=== PATIENT | male | born 1965 | race Caucasian/White ===

== ENCOUNTER 2016-12-06 12:28 | Emergency (ER) | payer OTHER ==
[2016-12-06] MEDS ORDERED: Triamcinolone Acetonide* 40 MG/ML 1 ML VIAL IM ONE (14:10)
[2016-12-06] MEDS ORDERED: predniSONE TAB* 20 MG PO ONE (14:11)
--- NOTE | 2016-12-06 14:13 | UC ---
Skin Complaint HPI - HPI Summary HPI Summary: 51 yo male was out walking dogs yesterday He got inside his left middle finger was itching later developed a rash (small blisters) most to the blisters broke when he itched it some crusting pruritis intense left dorsal hand edema noted this AM with some erthema - History of Current Complaint Chief Complaint: UCSkin Time Seen by Provider: 12/06/16 14:01 Stated Complaint: RED SWOLLEN HAND Hx Obtained From: Patient Onset/Duration: Gradual Onset, Lasting Hours Timing: Constant Onset Severity: Mild Current Severity: Moderate Pain Intensity: 1 Pain Scale Used: 0-10 Numeric Location: Discrete Character: Swelling, Pruritus, Redness, Painful Aggravating: Touch Associated Signs & Symptoms: Positive: Rash, Tenderness - Allergy/Home Medications Allergies/Adverse Reactions: Allergies Allergy/AdvReac Type Severity Reaction Status Date / Time Penicillins Allergy UNKNOWN - Verified 12/06/16 12:50 HAPPENED A CHILD Review of Systems Constitutional: Negative Skin: Rash Eyes: Negative ENT: Negative Respiratory: Negative Cardiovascular: Negative Gastrointestinal: Negative Genitourinary: Negative Motor: Negative Neurovascular: Negative Musculoskeletal: Negative Neurological: Negative Psychological: Negative All Other Systems Reviewed And Are Negative: Yes PMH/Surg Hx/FS Hx/Imm Hx Previously Healthy: Yes Other History Of: Negative For: HIV, Hepatitis B, Hepatitis C, Anticoagulant Therapy - Surgical History Surgical History: Yes Surgery Procedure, Year, and Place: Left bicep tendon repair, Tonsillectomy - Family History Known Family History: Positive: None Negative: Cardiac Disease, Hypertension, Blood Disorder - Social History Alcohol Use: Rare Substance Use Type: None Smoking Status (MU): Never Smoked Tobacco Type: Cigarettes Amount Used/How Often: 2 cigs per week Have You Smoked in the Last Year: No When Did the Patient Quit Smoking/Using Tobacco: 2013 - Immunization History Most Recent Tetanus Shot: unknown Physical Exam Triage Information Reviewed: Yes Appearance: Well-Appearing, No Pain Distress, Well-Nourished Vital Signs: Initial Vital Signs Temp 98.7 F 12/06/16 12:45 Pulse 89 12/06/16 12:45 Resp 18 12/06/16 12:45 BP 141/94 12/06/16 12:45 Pulse Ox 97 12/06/16 12:45 Vital Signs Reviewed: Yes Eyes: Positive: Conjunctiva Clear ENT: Positive: Hearing grossly normal. Negative: Nasal drainage, Tonsillar exudate, Muffled/hoarse voice Dental Exam: Normal Neck: Positive: Supple, Nontender, No Lymphadenopathy Respiratory: Positive: Chest non-tender, Lungs clear, Normal breath sounds Cardiovascular: Positive: RRR, No Murmur Musculoskeletal: Positive: ROM Intact, ROM Limited @ - left dorsal hand edema Skin Exam: Other - see image Course/Dx - Course Course Of Treatment: pt states he has taken keflex before - Diagnoses Provider Diagnoses: contact dermatitis vs insect bite. cellulitis Discharge - Discharge Plan Condition: Stable Disposition: HOME Prescriptions: Cephalexin CAP* [Keflex CAP*] 500 mg PO QID #28 cap Patient Education Materials: Contact Dermatitis (ED), Cellulitis (ED) Referrals: Kathryn Negron MD [Primary Care Provider] - 4 Days (if not improved) Additional Instructions: I am not sure if this is due to an insect bite or contact dermatitis I am concerned that there may be some infection due to itching it epsom salt soaks elevation recheck for new or worsening symptoms Images Hands: 1 - one intact vesicle/multiple scabs 2 - dorsal hand edema/erythema
[2016-12-06 15:18] VITALS: BP 138/88
== END 2016-12-06 15:00 | disposition home or self-care (01) ==
LOC: UCEAST 12:28
DX: L03.012 Cellulitis of left finger (principal); Z87.891 Personal history of nicotine dependence
CPT/HCPCS: 96372; 99212; G0463; J3301; J7512

== ENCOUNTER 2017-02-09 22:36 | Emergency (ER) | payer OTHER ==
[2017-02-09 22:57] VITALS: BP 174/100
[2017-02-10] MEDS ORDERED: Lidocaine PATCH 5%* 1 PATCH TRANSDERM ONE (02:40)
[2017-02-10] MEDS ORDERED: Orphenadrine Citrate IV* 30 MG/ML 2 ML VIAL IM ONE (02:50)
[2017-02-10] MEDS ORDERED: Ketorolac INJ* 60 MG/2 ML VIAL IM ONE (02:50)
[2017-02-10] MEDS ORDERED: Dexamethasone TAB* 4 MG PO ONE (02:51)
[2017-02-10] MEDS ORDERED: oxyCODONE/Acetamin 5/325 MG* TAB PO ONE (02:51)
--- NOTE | 2017-02-10 02:56 | ED ---
Neck Pain - HPI Summary HPI Summary: 51M presents with right side neck pain for a day. He has history of neck pain and has had this pain before but never this severe. pain is located to right side of neck and starts on lower head down to right shoulder. He states the pain is sharp in nature. He denies feeling any muscle spams. He denies any weakness into his arms. He states pain is worst when tries to move his neck. He denies any numbness or tingling into his arms. He denies nay fever. He denies any trauma. He has history of back pain that takes tramadol for on daily basis and then is prescribed percocet occasionally for break through pain. He does not have any percocet currently. - History of Current Complaint Chief Complaint: EDExtremityUpper Stated Complaint: RT SHOULDER PAIN Time Seen by Provider: 02/10/17 02:17 Pain Intensity: 8 - Allergies/Home Medications Allergies/Adverse Reactions: Allergies Allergy/AdvReac Type Severity Reaction Status Date / Time Penicillins Allergy UNKNOWN - Verified 02/09/17 22:57 HAPPENED A CHILD PMH/Surg Hx/FS Hx/Imm Hx Endocrine/Hematology History: Denies: Hx Anticoagulant Therapy, Hx Diabetes, Hx Thyroid Disease Cardiovascular History: Reports: Hx Hypertension - BORDERLINE, CONTROLLED Denies: Hx Congestive Heart Failure, Hx Deep Vein Thrombosis, Hx Myocardial Infarction, Hx Pacemaker/ICD Respiratory History: Reports: Hx Asthma - He denies a history of asthma, but uses nebulized levalbuterol. Denies: Hx Chronic Obstructive Pulmonary Disease (COPD), Hx Lung Cancer, Hx Pneumonia, Hx Pulmonary Embolism GI History: Denies: Hx Gall Bladder Disease, Hx Gastrointestinal Bleed, Hx Ulcer, Hx Urosepsis History: Denies: Hx Dialysis, Hx Kidney Stones, Hx Renal Disease Musculoskeletal History: Reports: Hx Arthritis, Hx Back Problems Sensory History: Denies: Hx Hearing Aid Neurological History: Denies: Hx Dementia, Hx Migraine, Hx Seizures, Hx Transient Ischemic Attacks (TIA) Psychiatric History: Denies: Hx Anxiety, Hx Depression, Hx Panic Disorder, Hx Schizophrenia, Hx Bipolar Disorder - Surgical History Surgery Procedure, Year, and Place: Left bicep tendon repair, Tonsillectomy Infectious Disease History: No Infectious Disease History: Denies: Hx Clostridium Difficile, Hx Hepatitis, Hx Human Immunodeficiency Virus (HIV), Hx of Known/Suspected MRSA, Hx Shingles, Hx Tuberculosis, Hx Known/ Suspected VRE, Hx Known/Suspected VRSA, History Other Infectious Disease, Traveled Outside the [place] in Last 30 Days - Family History Known Family History: Positive: None Negative: Cardiac Disease, Hypertension, Blood Disorder - Social History Alcohol Use: Rare Substance Use Type: Reports: None Smoking Status (MU): Never Smoked Tobacco Type: Cigarettes Amount Used/How Often: 2 cigs per week Have You Smoked in the Last Year: No Review of Systems Negative: Fever Negative: Chest Pain Negative: Shortness Of Breath Positive: Myalgia - right sided neck pain All Other Systems Reviewed And Are Negative: Yes Physical Exam Triage Information Reviewed: Yes Vital Signs On Initial Exam: Initial Vitals Temp Pulse Resp BP Pulse Ox 97.6 F 79 14 174/100 97 02/09/17 22:54 02/09/17 22:54 02/09/17 22:54 02/09/17 22:54 02/09/17 22:54 Vital Signs Reviewed: Yes Appearance: Positive: Well-Appearing Skin: Positive: Warm, Dry Head/Face: Positive: Normal Head/Face Inspection Eyes: Positive: Normal, EOMI, Conjunctiva Clear Respiratory/Lung Sounds: Positive: Clear to Auscultation, Breath Sounds Present Cardiovascular: Positive: Normal, RRR Musculoskeletal: Positive: Strength/ROM Intact - bilateral arms, Limited @ - neck, Other - no midline tenderness, tender over right side of neck from lower part of scalp to right shoulder, good pulses, Neurological: Positive: Reflexes Intact - biceps - [place] Coma Scale Coma Scale Total: 15 Diagnostics - Vital Signs Vital Signs Temp Pulse Resp BP Pulse Ox 02/09/17 22:54 97.6 F 79 14 174/100 97 - Laboratory Lab Statement: Any lab studies that have been ordered have been reviewed, and results considered in the medical decision making process. Neck Course/Dx - Course Course Of Treatment: 51M presents with right side neck pain for a day. He has history of neck pain and has had this pain before but never this severe. pain is located to right side of neck and starts on lower head down to right shoulder. He states the pain is sharp in nature. He denies feeling any muscle spams. He denies any weakness into his arms. He states pain is worst when tries to move his neck. He denies any numbness or tingling into his arms. He denies nay fever. He denies any trauma. He has history of back pain that takes tramadol for on daily basis and then is prescribed percocet occasionally for break through pain. He does not have any percocet currently. on exam no mildine tender. tender over trapezius muscle. good strength in arms and biceps reflex intact. due to no trauma or midline tenderness did not get imaging. discussed treatment options: decided will give percocet as usually takes for break through pain, has muscle relaxers at home, and lidocaine patches and steriod. patient understands and agrees with plan. - Diagnoses Differential Dx/HQI/PQRI: Positive: Arthritis, Sprain, Strain Provider Diagnoses: Neck pain Discharge - Discharge Plan Condition: Good Disposition: HOME Prescriptions: Methylprednisolone [Medrol Dosepak 4 MG*] 4 mg PO .SEE SUNG INSTRUCTION #1 packet oxyCODONE/Acetamin 5/325 MG* [Percocet 5/325 TAB*] 1 tab PO Q6H PRN #8 tab MDD 4 PRN Reason: Pain - Severe Patient Education Materials: Neck Pain (ED) Referrals: Kathryn Negron MD [Primary Care Provider] - Additional Instructions: Follow directions on package for Medrol pack Take muscle relaxers as prescribed Apply lidocaine patches to area for up to 12 hours in one 24 hour period Use ibuprofen or Tylenol for pain every 6 hours, use narcotic for break through pain, use caution as will make drowsy ice/heat area, move as much as possible Follow up with primary within 3 days Return to ED if develop any new or worsening symptoms
[2017-02-10] MEDS ORDERED: Lidocaine Patch REMOVE* 1 NOTE MISC PATCH OFF ONE (15:00)
== END 2017-02-10 03:21 | disposition home or self-care (01) ==
LOC: ED 22:36
DX: M54.2 Cervicalgia (principal)
CPT/HCPCS: 96372; 99282; A9270-GY; J1885; J2360; J8540

== ENCOUNTER 2017-09-27 15:47 | Emergency (ER) | payer OTHER ==
--- NOTE | 2017-09-27 18:01 | RAD ---
INDICATION: Left knee pain one day after injury. COMPARISON: None TECHNIQUE: 4 view radiograph of the left knee. FINDINGS: The visualized bones are well-corticated and properly aligned. The joint spaces are properly maintained. There is no radiographic evidence of joint effusion. There is no acute fracture, dislocation or other focal bony abnormality. IMPRESSION: Normal knee radiograph as described above. If the patient's symptoms persist, follow-up imaging is recommended.
[2017-09-27] MEDS ORDERED: Ketorolac INJ* 60 MG/2 ML VIAL IM ONE (19:27)
[2017-09-27 19:43] VITALS: BP 138/90
--- NOTE | 2017-09-27 20:02 | ED ---
Alfonso Oh Jennifer, scribed for Kera Reveles MD on 09/27/17 at 1928 . Lower Extremity - HPI Summary HPI Summary: The patient is a 52 year old male who presents with left knee pain since last night. The patient explains he was [place] when he stepped in a hole and felt his knee pop. He reports immediate pain and was unable to walk afterwards. He denies falling. The patient reports that the pain is worsened with walking or straightening out the foot. - History of Current Complaint Chief Complaint: EDExtremityLower Stated Complaint: LT KNEE INJURY Time Seen by Provider: 09/27/17 19:13 Hx Obtained From: Patient Mechanism Of Injury: Other - "pop" when he stepped in a hole Onset of Pain: Immediate Onset/Duration: Worse Since Severity Initially: Moderate Severity Currently: Moderate Pain Intensity: 5 Pain Scale Used: 0-10 Numeric Timing: Constant Location: Radiates To - left knee radiates to ankle when walking Character Of Pain: Unable To Describe Associated Signs And Symptoms: Positive: Knee Pain Aggravating Factor(s): Ambulation, Movement Alleviating Factor(s): Nothing Able to Bear Weight: Yes - Allergies/Home Medications Allergies/Adverse Reactions: Allergies Allergy/AdvReac Type Severity Reaction Status Date / Time Penicillins Allergy Rash Verified 09/27/17 15:52 PMH/Surg Hx/FS Hx/Imm Hx Endocrine/Hematology History: Reports: Hx Diabetes - type 2 Denies: Hx Anticoagulant Therapy, Hx Thyroid Disease Cardiovascular History: Reports: Hx Hypertension - BORDERLINE, CONTROLLED Denies: Hx Congestive Heart Failure, Hx Deep Vein Thrombosis, Hx Myocardial Infarction, Hx Pacemaker/ICD Respiratory History: Reports: Hx Asthma - He denies a history of asthma, but uses nebulized levalbuterol. Denies: Hx Chronic Obstructive Pulmonary Disease (COPD), Hx Lung Cancer, Hx Pneumonia, Hx Pulmonary Embolism GI History: Denies: Hx Gall Bladder Disease, Hx Gastrointestinal Bleed, Hx Ulcer, Hx Urosepsis History: Denies: Hx Dialysis, Hx Kidney Stones, Hx Renal Disease Musculoskeletal History: Reports: Hx Arthritis, Hx Back Problems Sensory History: Denies: Hx Hearing Aid Neurological History: Denies: Hx Dementia, Hx Migraine, Hx Seizures, Hx Transient Ischemic Attacks (TIA) Psychiatric History: Denies: Hx Anxiety, Hx Depression, Hx Panic Disorder, Hx Schizophrenia, Hx Bipolar Disorder - Surgical History Surgery Procedure, Year, and Place: Left bicep tendon repair, Tonsillectomy Infectious Disease History: No Infectious Disease History: Denies: Hx Clostridium Difficile, Hx Hepatitis, Hx Human Immunodeficiency Virus (HIV), Hx of Known/Suspected MRSA, Hx Shingles, Hx Tuberculosis, Hx Known/ Suspected VRE, Hx Known/Suspected VRSA, History Other Infectious Disease, Traveled Outside the [place] in Last 30 Days - Family History Known Family History: Negative: Cardiac Disease, Hypertension, Blood Disorder - Social History Alcohol Use: None Substance Use Type: Reports: None Smoking Status (MU): Former Smoker Type: Cigarettes Amount Used/How Often: 2 cigs per week Have You Smoked in the Last Year: No Review of Systems Negative: Fever Positive: Other - knee pain All Other Systems Reviewed And Are Negative: Yes Physical Exam - Summary Physical Exam Summary: GENERAL: ~Patient is a well developed and nourished M who is lying comfortable in the stretcher. ~Patient is not in any acute respiratory distress. HEAD AND FACE: Normocephalic EYES: PERRLA, EOMI x 2. EARS: Hearing grossly intact. MOUTH: Oropharynx within normal limits. NECK: Supple, trachea is midline, no adenopathy, no JVD, no carotid bruit. CHEST: Symmetric, no tenderness at palpation LUNGS: Clear to auscultation bilaterally. No wheezing or crackles. CVS: Regular rate and rhythm, S1 and S2 present, no murmurs or gallops appreciated. ABDOMEN: Soft, non-tender. Bowel sounds are normal. No abdominal abnormal pulsations. EXTREMITIES: Decreased ROM of left knee secondary to pain, tender to palpation throughout the knee area, no edema, no cyanosis or clubbing. Neurovasularly intact NEURO: Alert and oriented x 3. No acute neurological deficits. Speech is normal and follows commands. SKIN: Dry and warm Triage Information Reviewed: Yes Vital Signs On Initial Exam: Initial Vitals Temp Pulse Resp BP Pulse Ox 97.1 F 100 16 142/97 98 09/27/17 15:49 09/27/17 15:49 09/27/17 15:49 09/27/17 15:49 09/27/17 15:49 Vital Signs Reviewed: Yes Diagnostics - Vital Signs Vital Signs Temp Pulse Resp BP Pulse Ox 09/27/17 15:49 97.1 F 100 16 142/97 98 - Laboratory Lab Statement: Any lab studies that have been ordered have been reviewed, and results considered in the medical decision making process. - Radiology Knee XR Xray Interpretation: No Acute Changes - Normal knee radiograph as described above. If the patient's symptoms persist, follow-up imaging is recommended. Dr. Reveles has reviewed this report. Radiology Interpretation Completed By: Radiologist Lower Extremity Course/Dx - Course Course Of Treatment: The patient is a 52 year old male who presents with left knee pain since last night after he stepped in a hole and felt it pop. In the ED course the patient was given Toradol. Knee XR was normal. The patient was diagnosed with knee injury and instructed to follow up with orthopedics. His knee was immobilized and crutched provided. Return precautions given - Diagnoses Provider Diagnoses: Knee injury Discharge - Sign-Out/Discharge Documenting (check all that apply): Discharge/Admit/Transfer - Discharge Plan Condition: Stable Disposition: HOME Prescriptions: Ibuprofen TAB* [Motrin TAB* 800 MG] 800 mg PO ONCE #20 tab Patient Education Materials: Knee Sprain (ED), Crutch Instructions (ED) Referrals: Derrick Worthy MD [Medical Doctor] - Additional Instructions: Follow up with Dr. Worthy, orthopedics, in three days. Return to the emergency department for any new or worsening symptoms. - Billing Disposition and Condition Condition: STABLE Disposition: HOME The documentation as recorded by the Alfonso laura Jennifer accurately reflects the service I personally performed and the decisions made by , Kera Reveles MD.
== END 2017-09-27 19:56 | disposition home or self-care (01) ==
LOC: ED 15:47
DX: S89.92XA Unspecified injury of left lower leg, initial encounter (principal); M25.562 Pain in left knee; X50.0XXA Overexertion from strenuous movement or load, initial encounter; Y93.9 Activity, unspecified; Y92.89 Other specified places as the place of occurrence of the external cause; Z87.891 Personal history of nicotine dependence
CPT/HCPCS: 96372; 99282; J1885

== ENCOUNTER 2018-10-18 09:44 | Emergency (ER) | payer OTHER ==
[2018-10-18 10:08] VITALS: BP 144/85
--- NOTE | 2018-10-18 10:08 | UC ---
Respiratory Complaint HPI - HPI Summary HPI Summary: 53 y/o male presents to the urgent care c/o nasal congestion, yellowish nasal discharge, dry cough, sinus pressure for the past week. Symptoms started w/ a common cold. He has taken Alkazelter plus w/o any improvement. About 3 days ago he developed sore throat and he noticed B/L eye redness. however, this morning, he woke up w/ yellowish crusting eye discharge and his eye were shut. Pt also c/ o of left side lower back pain radiating to his left hip for the past week. He states Hx of DDD and Spondylolysis at level L5-S1 for many years. 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 He has seen Spinal doctor in the past and did PT for a while which improved his lower back pain. Pt states pain is 7/10 today. He took Ibuprofen PO to alleviate symptoms. Pt states he has taken muscle relaxants which doesn't improve his back pain. He declines Lumbar X-ray today. Pt denies saddle anesthesia, fecal or urinary incontinence, numbness or tingling on b/L lower extremities, urinary symptoms, abdominal pain, N/v/d, fever, Hx of STd's - History of Current Complaint Chief Complaint: UCRespiratory Stated Complaint: RESP COMPLAINT Time Seen by Provider: 10/18/18 09:59 Hx Obtained From: Patient Onset/Duration: Gradual Onset, Lasting Weeks - 1 week, Still Present, Worse Since - 3 days w sore throat and B/l eye redness Timing: Constant Severity Initially: Mild Severity Currently: Moderate Pain Intensity: 7 - lower back pain Pain Scale Used: 0-10 Numeric Character: Cough: Nonproductive Aggravating Factors: Recumbent Position Alleviating Factors: OTC Meds Associated Signs And Symptoms: Positive: URI, Nasal Congestion, Sinus Discomfort. Negative: Fever, Chills, Wheezing, Dizziness Related History: Seasonal Allergies - Risk Factors Pulmonary Embolism Risk Factors: Negative Cardiac Risk Factors: Negative Pseudomonas Risk Factors: Negative Tuberculosis Risk Factors: Negative - Allergies/Home Medications Allergies/Adverse Reactions: Allergies Allergy/AdvReac Type Severity Reaction Status Date / Time No Known Allergies Allergy Verified 10/18/18 10:08 Home Medications: Home Medications Sitagliptin Phosphate [Januvia] 25 mg PO 10/18/18 [History] PMH/Surg Hx/FS Hx/Imm Hx Previously Healthy: Yes Endocrine History: Diabetes, Hypothyroidism Cardiovascular History: Hypertension Other History Of: Negative For: HIV, Hepatitis B, Hepatitis C, Anticoagulant Therapy - Surgical History Surgical History: Yes Surgery Procedure, Year, and Place: REPAIR BICEP TENDON LEFT - Family History Known Family History: Positive: Hypertension, Diabetes Negative: Cardiac Disease, Blood Disorder - Social History Occupation: Employed Full-time Lives: With Family Alcohol Use: None Substance Use Type: None Smoking Status (MU): Former Smoker Type: Cigarettes Amount Used/How Often: 2 cigs per week Have You Smoked in the Last Year: No When Did the Patient Quit Smoking/Using Tobacco: quit 5 yrs ago - Immunization History Most Recent Tetanus Shot: unknown Review of Systems All Other Systems Reviewed And Are Negative: Yes Constitutional: Positive: Negative Skin: Positive: Negative Eyes: Positive: Drainage - crust yellowish drainage, Eye Redness - b/L eye redness ENT: Positive: Sore Throat, Ear Ache - B/L ear pressure, Nasal Discharge, Sinus Congestion, Sinus Pain/Tenderness, Other - PND Respiratory: Positive: Cough - dry Cardiovascular: Positive: Negative Gastrointestinal: Positive: Negative Genitourinary: Positive: Negative Motor: Positive: Negative Neurovascular: Positive: Negative Musculoskeletal: Positive: Decreased ROM - lower back, Other: - left side lower back pain Neurological: Positive: Negative Psychological: Positive: Negative Is Patient Immunocompromised?: No Physical Exam - Summary Physical Exam Summary: VITAL SIGNS: Reviewed. GENERAL: Patient is a well developed and nourished obese male who is sitting comfortable in the examining table. Patient is not in any acute respiratory distress. HEAD AND FACE: No signs of trauma. No ecchymosis, hematomas or skull depressions. positiveB/L maxillary and sinus sinus tenderness. EYES: PERRLA, EOMI x 2, No injected conjunctiva, no nystagmus. No photophobia. EARS: Hearing grossly intact. Ear canals and tympanic membranes are within normal limits. MOUTH: Positive pharynx with erythema, no exaudate, palatal petechiae. B/L tonsillar enlargement with no exudate. Uvula in midline. Moderate yellowish PND NECK: Supple, trachea is midline, Positive anterior cervical lymphadenopathy, no JVD, no carotid bruit, no c-spine tenderness, neck with full ROM. No meningeal signs, no Kernig's or brudzinskis signs. CHEST: Symmetric, no tenderness at palpation LUNGS: Clear to auscultation bilaterally. No wheezing or crackles. CVS: Regular rate and rhythm, S1 and S2 present, no murmurs or gallops appreciated. ABDOMEN: Soft, non-tender. No signs of distention. No rebound no guarding, and no masses palpated. Bowel sounds are normal. EXTREMITIES: FROM in all major joints, no edema, no cyanosis or clubbing. Musculoskeletal: Positive: Strength Intact, BACK: Patient walked into the urgent care room with symmetric ambulation, No signs of limping, antalgic, able to bear weight. No signs of trauma, No masses palpated. Point tenderness at the level of L5-S1, No CVAT, no flank ecchymosis . No sacroiliac notch tenderness, No saddle anesthesia.ROM: limited due to pain, Straight Leg Raise: negative. Patellar reflexes: brisk, symmetric Muscle strength lower extremities. Dorsiflexion/ plantar flexion of ankles. Heel/ toe walk. Lower extremities: Femoral, popliteal, posterior tibial, and dorsalis pedis pulses WNL. Pt refuse rectal exam. NEURO: Alert and oriented x 3. No acute neurological deficits. Speech is normal and follows commands. SKIN: Dry and warm Triage Information Reviewed: Yes Respiratory Course/Dx - Course Course Of Treatment: 53 y/o male presents to the urgent care c/o nasal congestion, yellowish nasal discharge, dry cough, sinus pressure for the past week. Symptoms started w/ a common cold. He has taken Alkazelter plus w/o any improvement. About 3 days ago he developed sore throat and he noticed B/L eye redness. however, this morning, he woke up w/ yellowish crusting eye discharge and his eye were shut. Pt also c/ o of left side lower back pain radiating to his left hip for the past week. He states Hx of DDD and Spondylolysis at level L5-S1 for many years. 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 He has seen Spinal doctor in the past and did PT for a while which improved his lower back pain. Pt states pain is 7/10 today. He took Ibuprofen PO to alleviate symptoms. Pt states he has taken muscle relaxants which doesn't improve his back pain. He declines Lumbar X-ray today. Pt denies saddle anesthesia, fecal or urinary incontinence, numbness or tingling on b/L lower extremities, urinary symptoms, abdominal pain, N/v/d, fever, Hx of STd's. Hx obtained. Pt w/ acute bacterial sinusitis and B/L eye conjunctivitis on examination. Rapid strep: negative. Pt with 1 week of symptoms getting worse. Pt Rx Amoxicillin PO, Ciprofloxacin and flonase nasal spray. I-stop # [id number] : negative. Driver PO for a few days to alleviate his lower back pain, Strongly recommended to wear a back support and f/u w/ his Spinal Dr or call Les Zuluaga, Spinal Navigator for further management in his Chronic back pain. Pt's BP is elevated today advised to decrease salt in diet, monitor BP and f/u with PCP for further management. Discharge instructions explained to Pt. Advised to Return to the clinic or PCP if symptoms do not improve.Pt understood and agreed with plan of care. Pt left clinic ambulating, hemodynamically stable, A&OX3 - Differential Dx/Diagnosis Differential Diagnosis/HQI/PQRI: Bronchitis, Influenza, Sinusitis, Other - conjunctivits. chronic back pain, DDD, spondylolithesis Provider Diagnosis: Acute bacterial sinusitis, Acute conjunctivitis, bilateral, Chronic back pain Discharge - Sign-Out/Discharge Documenting (check all that apply): Patient Departure - d/C home All imaging exams completed and their final reports reviewed: No Studies - Discharge Plan Condition: Stable Disposition: HOME Prescriptions: Amoxicillin PO (*) [Amoxicillin 875 MG (*)] 875 mg PO BID #20 tab Ciprofloxacin 0.3% OPTH.XIN* [Cipro 0.3% Opth*] 1 drop BOTH EYES Q2H #1 btl Fluticasone NASAL SPRAY 50MCG* [Flonase NASAL SPRAY 50MCG*] 2 spray BOTH NARES DAILY #1 btl HYDROcodone/ACETAMIN 5-325 MG* [Driver 5-325 TAB*] 1 tab PO Q8H PRN #9 tab MDD 1g /4hr-4g/day PRN Reason: Pain Patient Education Materials: Sinusitis (ED), Degenerative Disc Disease (ED), Conjunctivitis (ED) Referrals: Kathryn Negron MD [Primary Care Provider] - 2 Days Kager,Annmarie Ae, RN [Registered Nurse] - 2 Days Skyler Rhoades MD [Medical Doctor] - If Needed Additional Instructions: 1- Please increase fluid intake and rest. take full course of antibiotic to avoid resistance 2-Use Flonase nasal spray as directed to help drain fluid. Also buy saline drops to clear sinuses 3-Apply Ciprofloxacin ophthalmic drops as directed to alleviate symptoms. Encourage hand washing to avoid spreading. 4-Please f/u w/ your PCP or director index Dr Rhoades if symptoms do not improve for further management and treatment 5- Please take Driver PO as directed to alleviate symptoms o alleviate your chronic back pain 6- Avoid strenuous exercise or heavy lifting. 7- Please call Spinal Nurse Navigator in 2-3 days: Melissa Zuluaga: [phone] for further management of your Degenerative disc disease and herniated discs. You probably need an MRI 8- Your BP is elevated today. please decrease salt in your diet, monitor BP and if it continues to be elevated please f/u with your PCP for further management. - Billing Disposition and Condition Condition: STABLE Disposition: Home
== END 2018-10-18 11:40 | disposition home or self-care (01) ==
LOC: UCEAST 09:44
DX: J01.80 Other acute sinusitis (principal); H10.33 Unspecified acute conjunctivitis, bilateral; G89.29 Other chronic pain; M54.9 Dorsalgia, unspecified; I10 Essential (primary) hypertension; E03.9 Hypothyroidism, unspecified; E11.9 Type 2 diabetes mellitus without complications; Z87.891 Personal history of nicotine dependence
CPT/HCPCS: 87651; 99212; G0463

== ENCOUNTER 2023-04-20 09:04 | Observation (INO) ==
[2023-04-20 10:47] LABS: ABS Basophils 0.1 10^3/uL (0.0-0.1); ABS Eosinophils 0.2 10^3/uL (0.0-0.5); ABS Lymphocytes 1.3 10^3/uL (1.0-4.8); ABS Monocytes 1.2 10^3/uL (0.0-1.1); ABS Neutrophils 8.6 10^3/uL (1.5-7.6); ABS Nucleated RBC 0.02 10^3/ul; Eosinophil % 1.7 %; Hematocrit 49.2 % (38-53); Hemoglobin 16.9 g/dL (13.2-16.3); Lymphocyte % 11.7 %; Mean Corpuscular Hemoglobin 31.1 pg (27-33); Mean Corpuscular Hgb Conc 34.3 g/dL (31-36); Mean Corpuscular Volume 90.5 fL (80-97); Mean Platelet Volume 9.5 fL (7.5-11.2); Nucleated Red Blood Cells % 0.1 %/100WBC (0.0-0.8); Platelet Count 151 10^3/uL (150-450); Red Blood Count 5.43 10^6/uL (4.06-5.63); Red Cell Distribution Width 14.1 % (12-17); White Blood Count 11.3 10^3/uL (3.6-10.2)
[2023-04-20 11:01] LABS: C Reactive Protein 13.24 mg/L (<8.01); Calcium 9.7 mg/dL (8.6-10.3); Creatinine, Serum 0.89 mg/dL (0.67-1.17); Potassium 4.5 mmol/L (3.5-5.0); eGFR CKD-EPI 99.3 (>60)
[2023-04-20 11:05] LABS: Albumin 4.4 g/dL (3.2-5.2); Albumin/Globulin Ratio 1.3 (1-3); Globulin 3.4 g/dL (2-4); Total Bilirubin 1.2 mg/dL (0.2-1.0); Total Protein 7.8 g/dL (6.4-8.9)
[2023-04-20 12:39] LABS: Uric Acid 5.8 mg/dL (4.4-7.6)
[2023-04-20 13:44] LABS: Erythrocyte Sed Rate 5 mm/Hr (0-19)
[2023-04-20] MEDS ORDERED: cefTRIAXone 2 GM ADDV.VIAL 2 GM in NS 0.9% 100 ml BAG 100 ML IV ONE (14:09)
[2023-04-20] MEDS ORDERED: Vancomycin 1,500 MG in NS 0.9% 250 ml 250 ML IVPB ONE (14:09)
[2023-04-20] MEDS ORDERED: cefTRIAXone 2 gm/50 mL D5W 2 GM/50 ML BAG IV ONE (15:00)
[2023-04-20] MEDS ORDERED: Enoxaparin 40 MG/0.4 ML SYR SUBCUT SCH (17:00)
[2023-04-20] MEDS ORDERED: Vancomycin per Pharmacy 1 EA NOTE FOLLOW UP SCH (18:00)
[2023-04-20] MEDS ORDERED: Morphine 2 MG/ML SYRINGE IV PRN (18:07)
[2023-04-20] MEDS: Vancomycin 1000 MG in NS 0.9% 250 ML IVPB SCH (23:43)
[2023-04-21 06:23] LABS: ABS Eosinophils 0.1 10^3/uL (0.0-0.5); ABS Lymphocytes 1.2 10^3/uL (1.0-4.8); ABS Monocytes 1.3 10^3/uL (0.0-1.1); ABS Neutrophils 7.8 10^3/uL (1.5-7.6); ABS Nucleated RBC 0.01 10^3/ul; Eosinophil % 1.2 %; Hemoglobin 14.9 g/dL (13.2-16.3); Lymphocyte % 11.8 %; Mean Corpuscular Hemoglobin 30.6 pg (27-33); Mean Corpuscular Hgb Conc 33.8 g/dL (31-36); Mean Corpuscular Volume 90.3 fL (80-97); Mean Platelet Volume 9.8 fL (7.5-11.2); Nucleated Red Blood Cells % 0.1 %/100WBC (0.0-0.8); Platelet Count 134 10^3/uL (150-450); Red Blood Count 4.87 10^6/uL (4.06-5.63); Red Cell Distribution Width 14.1 % (12-17); White Blood Count 10.5 10^3/uL (3.6-10.2)
[2023-04-21 06:42] LABS: Calcium 8.9 mg/dL (8.6-10.3); Creatinine, Serum 0.86 mg/dL (0.67-1.17); Magnesium 1.9 mg/dL (1.9-2.7); Potassium 3.9 mmol/L (3.5-5.0); eGFR CKD-EPI 100.4 (>60)
[2023-04-21] MEDS: Vancomycin 1000 MG in NS 0.9% 250 ML IVPB SCH (08:07)
[2023-04-21] MEDS ORDERED: CABERGOLINE 0.5 MG PO SCH (09:00)
[2023-04-21 14:02] VITALS: BP 133/70
[2023-04-21] MEDS ORDERED: cefTRIAXone 1 gm/50 mL D5W 1 GM/50 ML BAG IV SCH (15:00)
[2023-04-21] MEDS ORDERED: Vancomycin Trough Check NOTE FOLLOW UP ONE (15:30)
[2023-04-22 23:23] LABS: Anaplasma phagocytophilum Negative (Negative); B. miyamotoi PCR, B Negative (Negative); Babesia divergens/MO-1 Negative (Negative); Babesia ducani Negative (Negative); Ehrlichia chaffeensis Negative (Negative); Ehrlichia ewingii/canis Negative (Negative); Ehrlichia muris eauclairensis Negative (Negative)
== END 2023-04-21 17:15 | disposition home or self-care (01) ==
LOC: ED 09:04 → EDHOLD 09:04 → SUATTDRO 14:24 → MEDTELE 18:50
PROVIDERS: ADMIT Internal Medicine; ATTEND Hospitalist